=== PATIENT | male | born 1970 | race Caucasian/White ===

== ENCOUNTER 2017-06-15 17:34 | Emergency (ER) | payer OTHER ==
[~2017-06-15] VITALS: Ht 172.7 cm; Wt 119.0 kg
[2017-06-15 18:22] LABS: HEMATOCRIT 49.6 % (38.0-50.0); MCH 30.8 PG (29.0-34.0); MCHC 34.7 G/DL (30.0-36.0); MCV 88.7 FL (86-99); MEAN PLAT.VOLUME 8.9 uM^3 (9.0-12.4); PLATELET COUNT 317 K/uL (156-360); RBC DIS.WIDTH-SD 39.3 % (39-53); RED BLOOD COUNT 5.59 M/uL (4.00-5.50); WHITE BLOOD COUNT 13.8 K/uL (4.1-10.2)
[2017-06-15 18:48] LABS: CHLORIDE 104 mEq/L (99-109); POTASSIUM 4.2 mEq/L (3.7-5.4); SODIUM 141 mEq/L (136-147)
[2017-06-15 18:50] LABS: GLUCOSE 121 mg/dL (70-99)
[2017-06-15 18:51] LABS: ANION GAP 14 MEQ/L (2-14)
[2017-06-15 18:52] LABS: ADD MIUA? YES; BILIRUBIN NEGATIVE; BLOOD LARGE; COLOR YELLOW ((YELLOW)); GLUCOSE (STRIP) NEGATIVE; KETONES NEGATIVE; LEUKOCYTES NEGATIVE; NITRITE NEGATIVE; PROTEIN (STRIP) 100; SPECIFIC GRAVITY 1.018 (1.000-1.030); UROBILINOGEN 0.2 MG/DL (0.2-1.0)
[2017-06-15 18:52] LABS: TOTAL BILIRUBIN 0.6 mg/dL (0.0-1.0)
[2017-06-15 18:54] LABS: ALKALINE PHOSPHATASE 84 IU/L (3-129); GFR ESTIMATE (CALCULATED) 50 mL/min/
[2017-06-15 18:55] LABS: UREA NITROGEN (BUN) 23 mg/dL (9-23)
[2017-06-15 19:30] LABS: BACTERIA 2+ /HPF; EPITHELIAL CELLS NONE SEEN /HPF; MUCUS NONE SEEN /LPF; RED BLOOD CELLS TNTC /HPF (0-5); UCUL ADDED? YES; WHITE BLOOD CELLS 0-5 /HPF (0-5)
[2017-06-15] MEDS ORDERED: PERCOCET 5/31 TABLET PO (20:41)
[2017-06-15] MEDS ORDERED: CIPRO500 MG PO (20:41)
[2017-06-15] MEDS ORDERED: ZOFRAN ODT8 MG PO (20:41)
[2017-06-15 21:11] VITALS: BP 142/87
== END 2017-06-15 21:11 | disposition home or self-care (01) ==
LOC: EME 17:34
DX: N20.0 Calculus of kidney (principal); J45.909 Unspecified asthma, uncomplicated
CPT/HCPCS: 74176; 80053; 81003; 85027; 87086; 99281; 99283; J1885

== ENCOUNTER 2017-06-18 12:15 | Day surgery (SDC) | payer OTHER ==
[~2017-06-18] VITALS: Ht 172.7 cm; Wt 117.9 kg
[~2017-06-18 12:15] MED LIST: CIPRO500 MG PO; PERCOCET 5/31 TABLET PO; ZOFRAN ODT8 MG PO
[2017-06-18 13:26] VITALS: BP 153/94
[2017-06-18 14:39] LABS: METH RESISTANT S AUREUS PCR NEGATIVE (NEGATIVE)
[2017-06-18 14:45] LABS: PROBE CHECK PASS; SPECIMEN PROCESSING CONTROL PASS
[2017-06-18 16:20] VITALS: BP 144/82
== END 2017-06-18 17:16 | disposition home or self-care (01) ==
LOC: SDC 12:15
PROVIDERS: Urology
DX: N13.2 Hydronephrosis with renal and ureteral calculous obstruction (principal); J45.909 Unspecified asthma, uncomplicated; K21.9 Gastro-esophageal reflux disease without esophagitis
CPT/HCPCS: 82365 90; 87641; C1876; J0690; J1580; J2250; J2405; J3010

== ENCOUNTER → 2017-08-07 | Outpatient (CLI) | payer OTHER | END | disposition home or self-care (01) | LOC: AMB 14:29 | DX: D23.71 Other benign neoplasm of skin of right lower limb, including hip (principal); D17.23 Benign lipomatous neoplasm of skin and subcutaneous tissue of right leg | CPT/HCPCS: 88305 ==